=== PATIENT | male | born 1965 | race Caucasian/White ===

== ENCOUNTER 2022-10-09 09:50 | Emergency (ER) | payer OTHER, SELFPAY ==
--- NOTE | 2022-10-09 19:58 | PC.NURSE ---
10/09/22 SEE DOWNTIME DOCUMENTATION JAE LEE RN
== END 2022-10-09 11:04 | disposition home or self-care (01) ==
LOC: EXPBETH 19:39
PROVIDERS: Emergency Provider Nurse Practitioner Family
DX: J06.9 Acute upper respiratory infection, unspecified (principal)
CPT/HCPCS: 99213; G0463